=== PATIENT | male | born 1955 | race Caucasian/White ===

== ENCOUNTER 2023-05-14 15:38 | Emergency (ER) | payer OTHER ==
[~2023-05-14] VITALS: Ht 167.6 cm; Wt 49.0 kg
[2023-05-14 15:38] VITALS: PULSE 76; RESP 16
[2023-05-14 15:41] VITALS: O2SAT 90
[2023-05-14] MEDS ORDERED: NOREPINEPHRINE 8MG/250ML PMX 250 ML IV STA (15:44)
[2023-05-14] MEDS ORDERED: SODIUM CHLORIDE 0.9% 1000ML BAG (SEPSIS BOLUS) IV ONE (15:45)
[2023-05-14] MEDS ORDERED: CEFTRIAXONE 1GM PREMIX 50 ML IV ONE (15:45)
[2023-05-14 16:07] LABS: MEAN CORPUSCULAR HGB CONC 29.6 g/dL (31.0-37.0); MEAN CORPUSCULAR VOLUME 104.5 fL (80.0-94.0); PLATELET 107 x1000/uL (130-400); RED BLOOD CELL COUNT 2.12 mill/uL (4.7-6.1); RED CELL DISTRIBUTION WIDTH 14.9 % (11.6-14.6); WHITE BLOOD COUNT 4.9 x1000/uL (4.5-11.0)
[2023-05-14 16:12] LABS: DIFFERENTIAL COMMENT 1
[2023-05-14 16:16] VITALS: BP 66/31
[2023-05-14 16:16] LABS: CHLORIDE 127 mEq/L (98-107); HEMOGLOBIN. 6.6 g/dL (14.0-18.0); INDEX HEMOLYSI 1 (1-3); INDEX ICTERIC 1 (1-4); INDEX LIPEMIC 1 (1-3); SODIUM 155 mEq/L (136-145)
[2023-05-14 16:17] LABS: HEMATOCRIT. 22.1 % (42.0-52.0)
[2023-05-14 16:21] LABS: D-DIMER 20.66 mg/L FEU (<0.50); INR 1.3; PROTHROMBIN TIME 13.9 sec (9.6-11.0)
[2023-05-14] MEDS ORDERED: PANTOPRAZOLE SODIUM 40 MG/VIAL IV ONE (16:30)
[2023-05-14] MEDS ORDERED: AZITHROMYCIN 500MG/250ML 250 ML IV ONE (16:30)
[2023-05-14 16:40] LABS: ALANINE AMINOTRANSFERASE 1792 IU/L (13-61); BILIRUBIN TOTAL 0.3 mg/dL (0.1-1.0); CARBON DIOXIDE 21 mEq/L (21-32); CREATINE KINASE 99 IU/L (39-308); CREATININE 0.3 mg/dL (0.6-1.3); ETHANOL BLOOD < 10 mg/dL (<10); NT PRO B-TYPE NATRIURETIC PEP 244 pg/mL (5-125); PROTEIN TOTAL 2.4 g/dL (6.0-8.3); TROPONIN I HIGH SENSITIVITY 8 ng/L (<78); UREA NITROGEN BLOOD 13 mg/dL (7-21)
[2023-05-14 16:48] LABS: BG BASE EXCESS -0.4 mmol/L (-2.0-2.0); BG CARBOXYHEMOGLOBIN 0.3 % (0.5-1.5); BG DEOXYHEMOGLOBIN 0.6 % (0.0-5.0); BG FRACTION INSPIRED OXYGEN 100; BG HCO3 ACT 26.5 mmol/L (22.0-26.0); BG METHEMOGLOBIN 0.1 % (0.0-1.5); BG OXYGEN SATURATION 99.4 % (92.0-98.5); BG PCO2 55.7 mmHg (35.0-45.0); BG PH 7.296 (7.350-7.450); BG PO2 448.7 mmHg (75.0-100.0); BG SAMPLE SITE RIGHT BRACHIAL; BG TOTAL HEMOGLOBIN 9.7 g/dL (12.0-18.0); BG TOTAL RESPIRATORY RATE 16 b/min; BG VENT MODE VENT - AC
[2023-05-14 17:04] LABS: PLATELET ESTIMATE DECREASED
[2023-05-14 17:10] VITALS: PULSE 41; RESP 16
[2023-05-14 17:39] LABS: LACTIC ACID 9.2 mmol/L (0.4-2.0)
[2023-05-14 17:41] LABS: ALBUMIN 0.7 g/dL (3.4-5.0); ASPARTATE AMINOTRANSFERASE 2140 IU/L (15-37); CALCIUM 5.5 mg/dL (8.5-10.1); POTASSIUM 2.8 mEq/L (3.5-5.1)
[2023-05-14 17:42] LABS: GLUCOSE 46 mg/dL (70-105)
== END 2023-05-14 17:57 ==
LOC: ER 15:38
DX: I46.9 Cardiac arrest, cause unspecified (principal); A41.9 Sepsis, unspecified organism; R65.21 Severe sepsis with septic shock; J96.01 Acute respiratory failure with hypoxia; E87.6 Hypokalemia; J44.9 Chronic obstructive pulmonary disease, unspecified; E16.2 Hypoglycemia, unspecified; D64.9 Anemia, unspecified
CPT/HCPCS: 80053; 80320; 82550; 83880; 83605; 83690; 85025; 85379; 85610; 86850; 86900; 86901; 86920; 87040; 84484; 36415; 84145; 71045; 82805; 82375; 31500 ×2; 93005; 96368; 92950; 96365; 99291; 36600; J0456; J0696; J3490; C9113; J7030; 94002; 96366; P9016; G0480